=== PATIENT | female | born 1985 | race Caucasian/White ===

== ENCOUNTER 2020-03-05 08:59 | Emergency (ER) | payer OTHER ==
[~2020-03-05] VITALS: Ht 152.4 cm; Wt 97.5 kg
[~2020-03-05 08:59] MED LIST: OGESTREL1 EACH PO
== END 2020-03-05 11:43 | disposition home or self-care (01) ==
LOC: ED 08:59
DX: N93.9 Abnormal uterine and vaginal bleeding, unspecified (principal); D64.9 Anemia, unspecified
CPT/HCPCS: 84703; 85025; 99284